=== PATIENT | male | born 1940 | race Caucasian/White ===

== ENCOUNTER → 2016-10-01 | Day surgery (SDC) | payer MEDICARE, BC ==
[~2016-10-01] VITALS: Ht 170.2 cm; Wt 82.9 kg
[~2016-10-01] MED LIST: ACETAMINOPHEN/HYDROcodone 325 MG/5 MG TAB PO PRN; AMPICILLIN/SULBAC 3 GM/NS 100 ML IV SCH; ASPI-110 PO; ATOR1TAB18 PO; BACITRACIN TOP OINT 15 GM TUBE ONE; DO NOT ADM ANY ANTICOAGULANT DRUGS XX PRN; DULO1CAP3 PO; INSULIN HUMAN REGULAR 1,000 UNITS/10 ML VIAL SQ PRN; LACTATED RINGER'S 1000 ML INJ 1,000 ML IV SCH; LACTATED RINGER'S 1000 ML IV SCH; LIDOCAINE 1%/EPINEPHrine 1:100,000 SOLN 30 ML VIAL ONE; LISI-515 PO; METOPROLOL TARTRATE 25 MG TAB PO PRN; MUPIROCIN 2% OINT 22 GM TUBE ONE; OFLOXACIN 0.3% OPTH SOLN 5 ML BTL ONE; OMEP20TA PO; ONDANSETRON HCL 4 MG/2 ML VIAL IV PUSH ONE; PARO20TA2 PO; PROP160C PO; PROPOFOL 200 MG/20 ML AMP IV ONE; SODIUM CHLORID 0.9% 500 ML IV SCH; TOBRAMYCIN 0.3%/DEXAMETHASONE 0.1% OPHT SUSP 5 ML BTL ONE; ePHEDrine/NS 25 MG/5 ML SYR IV ONE
[2016-10-01 10:02] VITALS: BP 194/74; PULSE 60; RESP 16; TEMP 97.8; O2SAT 98
[2016-10-01 12:30] VITALS: BP 170/72; PULSE 56; RESP 18; TEMP 97.5; O2SAT 99
--- NOTE | 2016-10-01 18:08 | EKG ---
Date Performed: 10/01/2016 Time Performed: 09:48:02 PTAGE: 75 years EKG: SINUS BRADYCARDIA POSSIBLE LEFT ATRIAL ENLARGEMENT RIGHT BUNDLE BRANCH BLOCK ABNORMAL ECG NO PREVIOUS TRACING DOCTOR: Dwight Tolentino Interpretating Date/Time 10/01/2016 18:07:29
--- NOTE | 2016-10-07 10:50 | MP ---
cc: LEANA BERNARD M.D. DATE OF SURGERY: 10/01/[address] Leana Bernard PREOPERATIVE DIAGNOSIS 1. Sensorineural hearing loss. 2. Chronic left otorrhea. 3. 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 POSTOPERATIVE DIAGNOSIS 1. Sensorineural hearing loss. 2. Chronic left otorrhea. 3. 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 OPERATION PERFORMED 1. Excision of lesion, left ear canal. 2. Left ear canalplasty INDICATIONS Fredy Fuentes is a 76-year-old man with a long history of bilateral hearing loss. He is deaf in his right ear and has very poor hearing in the left. For recent months he has been unable to use his left ear hearing aid due to chronic drainage from the left ear which would not resolve with medical therapy. On examination of the left ear there is a large granulomatous lesion originating on the anterior wall extending approximately care home down the ear canal. This keeps the canal filled with purulent material. DESCRIPTION OF OPERATION The patient was taken to OR #6 and placed in the supine position. Following induction of general anesthesia and intubation using a laryngeal mask apparatus, the left ear was prepped and draped for surgery. Under microscopic examination the soft tissue lesion in the left ear canal was injected with 3 mL of 1% Xylocaine with epinephrine 1:100,000. The ear was evacuated with #7 suction and then using a 15 blade scalpel the skin of the anterior canal wall was incised down to the bony and cartilaginous junction. The soft tissue was then removed sharply down to bone and cartilage, was peeled off of the cartilage using a Yvan elevator. There was a penetration of the granulation tissue going anteriorly around the 9 o'clock position of the canal medial to the meatus. This was excised using a 15 blade scalpel and also with needle-tip Bovie cautery at 12 amin. At this point the canal was further examined. There is evidence of bony obstruction at the anterior canal wall. The skin was elevated from this underlying bone. The bone was then removed using a curet to allow for access to the medial end of the ear canal. This was then evacuated of purulent material and squamous debris. The margins of the excised area of skin were cauterized using the needle-tip Bovie at 10 amin. The ear canal was filled with mupirocin ointment and a segment of Merocel foam was placed in the meatus. This was saturated with oxymetazoline and the procedure was terminated. The patient was then reversed from anesthesia and taken to Recovery in good condition. There were no complications. Blood loss was 60 mL. MD NAN Pitt/ALCIDES /11:23 AM /10:37 AM
== END | disposition home or self-care (01) ==
LOC: HSDC 08:41
PROVIDERS: ATTEND Otolaryngology
DX: H60.42 Cholesteatoma of left external ear (principal); H90.5 Unspecified sensorineural hearing loss; I10 Essential (primary) hypertension; R94.31 Abnormal electrocardiogram [ECG] [EKG]
CPT/HCPCS: 00120; 69140; 69631; 88305; 93005; J0295; J2405; J3010; J7120

== ENCOUNTER → 2017-07-29 | Outpatient (CLI) | payer MEDICARE, BC ==
[~2017-07-29] MED LIST changes: -ACETAMINOPHEN/HYDROcodone 325 MG/5 MG TAB PO PRN; -AMPICILLIN/SULBAC 3 GM/NS 100 ML IV SCH; -ASPI-110 PO; +ASPI1TAB57 PO; -ATOR1TAB18 PO; +ATOR80TA45 PO; -BACITRACIN TOP OINT 15 GM TUBE ONE; -DO NOT ADM ANY ANTICOAGULANT DRUGS XX PRN; -INSULIN HUMAN REGULAR 1,000 UNITS/10 ML VIAL SQ PRN; -LACTATED RINGER'S 1000 ML INJ 1,000 ML IV SCH; -LACTATED RINGER'S 1000 ML IV SCH; -LIDOCAINE 1%/EPINEPHrine 1:100,000 SOLN 30 ML VIAL ONE; -METOPROLOL TARTRATE 25 MG TAB PO PRN; -MUPIROCIN 2% OINT 22 GM TUBE ONE; -OFLOXACIN 0.3% OPTH SOLN 5 ML BTL ONE; -OMEP20TA PO; +OMEP20TA93 PO; -ONDANSETRON HCL 4 MG/2 ML VIAL IV PUSH ONE; -PROPOFOL 200 MG/20 ML AMP IV ONE; -SODIUM CHLORID 0.9% 500 ML IV SCH; -TOBRAMYCIN 0.3%/DEXAMETHASONE 0.1% OPHT SUSP 5 ML BTL ONE; -ePHEDrine/NS 25 MG/5 ML SYR IV ONE
--- NOTE | 2017-07-29 14:59 | RADRPT ---
EXAM DATE/TIME: 07/29/2017 13:53 [facility] COMPARISON: No previous studies available for comparison. INDICATIONS : Bilateral hand tremors with shuffling of the feet. Parkinsons disease. DOSE: 5.0 mCi Ioflupane Iodine-123 in 2.5 ml total volume MEDICATION(S): 130 mg Potasium Iodine PO one hour prior to injection SPECT IMAGIN.5 hours. IMAGNG: SPECT/CT imaging with fusion was performed. RADIATION DOSE: 30.27 CTDIvol (mGy) MEDICAL HISTORY : Hypertension. SURGICAL HISTORY : Carotid endarterectomy. Prostatectomy. ENCOUNTER: Initial ACUITY: 1 yr PAIN SCALE: 0/10 LOCATION: Head. TECHNIQUE: SPECT imaging of the brain was performed in sagittal, axial and coronal planes. Attenuation correctio n was performed with computed tomography and both the attenuation correction and non-attenuation lamar ected data sets were reviewed. FINDINGS: There is normal biodistribution of radionuclide with symmetric crescent-shaped areas of activity are in the striatum which appears distinct relative to the surrounding brain tissue. CONCLUSION: 1. Normal dopamine transporter scan Vinod Flannery MD on July 29, 2017 at 14:56 Board Certified Radiologist. This report was verified electronically.
== END ==
LOC: HRAD 09:18
PROVIDERS: ATTEND Specialist
DX: G20 Parkinson's disease (principal)
CPT/HCPCS: 78607; A9584